=== PATIENT | female | born 1995 | race Caucasian/White ===

== ENCOUNTER 2018-05-19 10:05 | Emergency (ER) | payer BC ==
[2018-05-19] MEDS ORDERED: NS 1,000 ML IV ONE (10:30)
[2018-05-19] MEDS ORDERED: ONDANSETRON 4 MG/2 ML VIAL IVP ONE (10:30)
--- NOTE | 2018-05-19 10:32 | EDPHY ---
General Time Seen by Provider: 05/19/18 10:13 Narrative: CLINICAL IMPRESSION: Acute alcoholic gastritis without hemorrhage ASSESSMENT/PLAN: 22-year-old female presents to the emergency department with complaints of epigastric abdominal pain, nausea and vomiting in the setting of heavy alcohol use yesterday. Patient does not drink alcohol regularly, is otherwise healthy and has no reports of hematemesis, melena, hematochezia, back pain, chest pain or shortness of breath. Abdominal exam is reassuring, no focal peritoneal findings. Vital signs are stable. Patient received IV fluids, antiemetics, analgesics, and a GI cocktail with significant improvement in her symptoms. She was able to tolerate water without difficulty. No laboratory findings to suggest pancreatitis, acute transaminitis, severe dehydration, renal insufficiency, or electrolyte imbalance. Patient was advised to try an H2 chris or PPI, abstain from alcohol, and follow up with primary care. Warning signs return to ED sooner outlined in person and discharge papers. DIFFERENTIAL DX: Abdominal pain includes but not limited to pancreatitis, hepatitis, acute alcohol intoxication, colitis, urinary tract infection, pyelonephritis, infection, ectopic , salpingitis, TOA, ovarian torsion, ovarian cyst, endometriosis, uterine fibroids, acute appendicitis, acute diverticulitis, small -bowel obstruction, constipation ED PROCEDURES: See lab and/or imaging results below ED COURSE: 11:40 a.m.:. Labs reviewed, no acute abnormalities identified. Patient reassessed, states she is feeling much better now. Able to tolerate water. I will plan to discharge her home. [id number] treatments discussed, abstinence from alcohol encouraged, close monitoring of symptoms discussed, warning signs return to ED outlined. CHIEF COMPLAINT: Nausea, vomiting, abdominal pain in the setting of alcohol use HPI: 22-year-old [employer] student presents to the emergency department with complaints of nausea, vomiting, and intermittent upper abdominal pain. Patient reports heavy drinking yesterday stating that she drank most of the day , upwards of 10-12 drinks with her last drink being about 12 30 last night. She reports she drinks socially most weekends but does not drink during the week. No history of pancreatitis or hepatitis. She denies heavy use of NSAIDs. She reports 1 episode of vomiting today with no hematemesis. No reported diarrhea, constipation or bloody stools. She is on her menstrual cycle and denies . No UTI symptoms or flank pain. She has not taken anything for pain but states that it was severe enough to come to the emergency department. PAST MEDICAL HISTORY: None reported See nurse/triage notes for additional history if applicable Pertinent Past Surgical History: None reported Family History: Noncontributory Social History: Student at [employer] REVIEW OF SYSTEMS: All other systems negative Constitutional: No fever, no chills, positive for appetite change. Cardiovascular: No chest pain, no palpitations. Respiratory: No cough, no shortness of breath. Gastrointestinal: Positive for abdominal pain, vomiting, denies diarrhea. Genitourinary: No hematuria, dysuria, flank pain, pelvic pain Musculoskeletal: No back pain, joint swelling, joint pain, myalgias. Skin: No rashes, color change. Neurological: No headache, dizziness, weakness. PHYSICAL EXAM: General Appearance: Alert, oriented, appropriate, cooperative, NAD, well hydrated, non-toxic appearing, thin, VSS, no hypoxia. Respiratory: There are no retractions, lungs are clear to auscultation. Cardiac: Regular rate and rhythm, no murmurs or gallops. Gastrointestinal: Abdomen is soft, mild epigastric tenderness, bowel sounds normal, no masses/hernia, no rigidity, guarding or focal peritoneal findings. exam not performed Neurological: [ Alert and oriented x 3, CN 2-12 grossly intact Skin: Warm, dry, no rashes, no nodules on palpation. Musculoskeletal: Extremities are symmetrical, full range of motion, no tenderness, deformity, swelling, or erythema. Psychiatric: Patient is oriented X 3, there is no agitation. MEDICAL DECISION MAKING: Patient was seen independently. Secondary supervising physician at time of evaluation was Dr. Allen. Diagnosis: Acute alcohol-induced gastritis without hemorrhage . New, requires workup Summary: See Assessment and Plan for summary of ED visit Clinical lab tests: ordered / reviewed. Independent visualization of images, tracing, or specimens: Not obtained. Patient Progress: Improved. - History Smoking Status: Never smoked - Objective Vital Signs: Initial Vital Signs Temperature (C) 36.5 C 05/19/18 10:08 Heart Rate 88 05/19/18 10:08 Respiratory Rate 16 05/19/18 10:08 Blood Pressure 112/72 05/19/18 10:08 O2 Sat (%) 94 05/19/18 10:08 O2 Delivery Mode Room Air Allergies/Adverse Reactions: No Known Allergies Allergy (Unverified 05/19/18 10:07) Home Medications: Medication Instructions Recorded Bcp 05/19/18 Lexapro 05/19/18 Ondansetron Odt [Zofran Odt] 4 mg PO Q4PRN PRN #7 tab 05/19/18 Laboratory Results: Laboratory Results 05/19/18 10:25 05/19/18 10:25 05/19/18 05/19/18 05/19/18 10:25 10:25 10:25 WBC 12.51 10^3/uL H 10^3/uL (3.80-9.50) RBC 4.55 10^6/uL 10^6/uL (4.18-5.33) Hgb 13.9 g/dL g/dL (12.6-16.3) Hct 39.8 % % (38.0-47.0) MCV 87.5 fL fL (81.5-99.8) MCH 30.5 pg pg (27.9-34.1) MCHC 34.9 g/dL g/dL (32.4-36.7) RDW 12.5 % % (11.5-15.2) Plt Count 229 10^3/uL 10^3/uL (150-400) MPV 9.5 fL fL (8.7-11.7) Neut % (Auto) 74.5 % H % (39.3-74.2) Lymph % (Auto) 17.7 % % (15.0-45.0) [place] % (Auto) 5.7 % % (4.5-13.0) Eos % (Auto) 1.4 % % (0.6-7.6) Baso % (Auto) 0.5 % % (0.3-1.7) Nucleat RBC Rel Count 0.0 % % (0.0-0.2) Absolute Neuts (auto) 9.32 10^3/uL H 10^3/uL (1.70-6.50) Absolute Lymphs (auto) 2.22 10^3/uL 10^3/uL (1.00-3.00) Absolute Monos (auto) 0.71 10^3/uL 10^3/uL (0.30-0.80) Absolute Eos (auto) 0.18 10^3/uL 10^3/uL (0.03-0.40) Absolute Basos (auto) 0.06 10^3/uL 10^3/uL (0.02-0.10) Absolute Nucleated RBC 0.00 10^3/uL 10^3/uL (0-0.01) Immature Gran % 0.2 % % (0.0-1.1) Immature Gran # 0.02 10^3/uL 10^3/uL (0.00-0.10) Sodium 139 mEq/L mEq/L (135-145) Potassium 4.2 mEq/L mEq/L (3.5-5.2) Chloride 106 mEq/L mEq/L (97-110) Carbon Dioxide 22 mEq/l mEq/l (22-31) Anion Gap 11 mEq/L mEq/L (6-14) BUN 12 mg/dL mg/dL (7-23) Creatinine 0.7 mg/dL mg/dL (0.6-1.0) Estimated GFR > 60 Glucose 83 mg/dL mg/dL (70-100) Calcium 9.2 mg/dL mg/dL (8.5-10.4) Total Bilirubin 0.8 mg/dL mg/dL (0.1-1.4) Conjugated Bilirubin 0.2 mg/dL mg/dL (0.0-0.5) Unconjugated Bilirubin 0.6 mg/dL mg/dL (0.0-1.1) AST 20 IU/L IU/L (14-46) ALT 16 IU/L IU/L (9-52) Alkaline Phosphatase 89 IU/L IU/L (38-126) Total Protein 7.9 g/dL g/dL (6.3-8.2) Albumin 4.6 g/dL g/dL (3.5-5.0) Lipase 44 IU/L IU/L (23-300) Beta HCG, Qual NEGATIVE Medications Given: Discontinued Medications Al Hydroxide/Mg Hydroxide (Maalox Susp) 30 ml PO ONCE ONE Stop: 05/19/18 11:24 Last Admin: 05/19/18 11:27 Dose: 30 ml Fentanyl (Sublimaze) 50 mcg IVP EDNOW ONE Stop: 05/19/18 11:24 Last Admin: 05/19/18 11:27 Dose: 50 mcg Hyoscyamine Sulfate (Levsin, Hyomax-Sl) 0.25 mg PO ONCE ONE Stop: 05/19/18 11:24 Last Admin: 05/19/18 11:27 Dose: 0.25 mg Sodium Chloride (Ns) 1,000 mls @ 0 mls/hr IV EDNOW ONE; Wide Open PRN Reason: Protocol Stop: 05/19/18 10:31 Last Admin: 05/19/18 10:40 Dose: 1,000 mls Famotidine/Sodium Chloride (Pepcid 20 Mg (Premix)) 50 mls @ 200 mls/hr IV EDNOW ONE Stop: 05/19/18 10:50 Last Admin: 05/19/18 10:44 Dose: 50 mls Lidocaine (Lidocaine 2% Viscous) 15 ml PO ONCE ONE Stop: 05/19/18 11:24 Last Admin: 05/19/18 11:27 Dose: 15 ml Ondansetron HCl (Zofran) 4 mg IVP EDNOW ONE Stop: 05/19/18 10:31 Last Admin: 05/19/18 10:41 Dose: 4 mg Departure - Departure Disposition: Home, Routine, Self-Care Clinical Impression: Gastritis due to alcohol without hemorrhage Qualifiers: Chronicity: acute Qualified Code(s): K29.20 - Alcoholic gastritis without bleeding Condition: Good Instructions: Gastritis (ED) Additional Instructions: DISCHARGE INSTRUCTIONS FROM YOUR DOCTOR Thank you for visiting our emergency department today. Please keep in mind that discharge from the emergency department does not mean that there is nothing wrong - it simply means that we have not identified an emergency condition that requires further evaluation or treatment in the hospital. You should always plan to follow up with primary care for re-evaluation of your condition in the next 2-3 days. If you have been referred to a specialist, please call as soon as possible (today or tomorrow) to schedule your follow up appointment at the appropriate time. LABORATORY EVALUATION WAS REASSURING. NO EVIDENCE OF PANCREATITIS, HEPATITIS, ELECTROLYTE IMBALANCE, RENAL INSUFFICIENCY, SEVERE DEHYDRATION OR INFECTION. PLEASE AVOID ALCOHOL. PLEASE CONSIDER USING PEPCID AC OR ZANTAC OVER-THE- COUNTER FOR THE NEXT SEVERAL DAYS. PLEASE STICK WITH A BLAND DIET, AVOID SPICY OR CITRUS FOOD. RETURN TO THE EMERGENCY DEPARTMENT FOR WORSENING OR PERSISTENT PAIN, PERSISTENT VOMITING OR BLOOD IN HER VOMIT, DARK BLACK STOOLS, FEVERS GREATER THAN 100.4, OR ANY OTHER CONCERNS. People present with illnesses and injuries in different ways, and it is always possible that we have missed something. You may always return for re-evaluation if symptoms worsen or if they are not improving or if you develop new/different symptoms. Again, thank you for choosing our emergency department. We hope that you feel better. Referrals: NONE *PRIMARY CARE P,. [Primary Care Provider] - As per Instructions [facility] [Clinic] - As per Instructions Prescriptions: Ondansetron Odt [Zofran Odt] 4 mg PO Q4PRN PRN #7 tab PRN Reason: Nausea/Vomiting, Can'T Take Po
[2018-05-19] MEDS ORDERED: FAMOTIDINE 20 MG/NACL 50 ML IV ONE (10:36)
[2018-05-19 10:37] LABS: PLATELET COUNT 229 10^3/uL (150-400)
[2018-05-19] MEDS ORDERED: fentaNYL 100 MCG/2 ML INJ IVP ONE (11:23)
[2018-05-19] MEDS ORDERED: MAG HYDROX/AL HYDROX/SIMETH 30 ML UDCUP PO ONE (11:23)
[2018-05-19] MEDS ORDERED: HYOSCYAMINE SULFATE 0.125 MG TAB PO ONE (11:23)
[2018-05-19] MEDS ORDERED: LIDOCAINE 2% VISCOUS 15 ML UDCUP PO ONE (11:23)
[2018-05-19 12:02] VITALS: BP 113/64
== END 2018-05-19 12:00 | disposition home or self-care (01) ==
DX: K29.20 Alcoholic gastritis without bleeding (principal); E86.9 Volume depletion, unspecified
CPT/HCPCS: 96365; J2405; J3010